=== PATIENT | male | born 2000 | race African-American/Black ===

== ENCOUNTER 2023-04-05 20:14 | Emergency (ER) | payer SELFPAY ==
[2023-04-05] MEDS ORDERED: Boostrix 0.5 ML (Tdap) VIAL (>/=7 yrs of age) ONE (20:29)
[2023-04-05] MEDS ORDERED: Lidocaine 1% MPF 2 ML VIAL ONE (20:29)
== END 2023-04-05 21:05 | disposition home or self-care (01) ==
LOC: ERS 20:14
DX: T16.2XXA Foreign body in left ear, initial encounter (principal)
CPT/HCPCS: 69200; 90471; 90715